=== PATIENT | male | born 1950 | race Caucasian/White ===

== ENCOUNTER → 2018-02-11 17:13 | Outpatient (CLI) | payer MEDICARE, OTHER, SELFPAY ==
--- NOTE | 2018-02-11 17:16 | DI.MRI.S_ITS ---
PROCEDURE: MR SHOULDER RT WO CON INDICATIONS: RIGHT SHOULDER BURSITIS/TENDONITIS TECHNIQUE: Noncontrast oblique coronal T2 fast spin echo with fat saturation, oblique sagittal T1 spin echo and T2 fast spin echo with fat saturation, axial T1 spin echo and T2 fast spin echo with fat saturation through the shoulder. COMPARISON: [facility], CR, XR SHOULDER 2+ VIEWS RIGHT, 12/19/2017, 13:47. FINDINGS: Image quality: Diagnostic Rotator cuff: There is at least moderate grade in partial-thickness tear identified involving the distal supraspinatus tendon that is positioned along the bursal surface. A small perforating full-thickness tear at this location is difficult to exclude. There is moderate supraspinatus tendinopathy. Mild subscapularis and infraspinatus tendinopathy is present. The teres minor tendon is intact. There is no significant atrophy of the rotator cuff muscles. Bones and bursae: There is no acute fracture, dislocation, or suspicious osseous lesion involving the osseous structures of the right shoulder. There is posterior subluxation of the humeral head. Mild degenerative changes of the glenohumeral joint are present. There is a small glenohumeral joint effusion. There are moderate degenerative changes present involving the acromial clavicular joint with moderate-sized undersurface osteophytes. There is thickening of the subacromial subdeltoid bursa. A small amount of fluid is contained within the bursa. Capsule and soft tissues: Evaluation of the labrum and the glenohumeral ligaments is difficult without intra-articular contrast. However, there is a moderate-sized a superior labral tear identified that extends from the 9 o'clock position (anterior) through the 12 o'clock position (superior) into at least the 3 o'clock position (posterior). No large para labral cysts are evident. Additional tearing along the anteroinferior labrum may be present. The long head of the biceps tendon is normally positioned within the bicipital groove and is otherwise intact and grossly unremarkable. Edema/fluid extending beyond the inferior joint capsule may be related to a perforating tear of the inferior glenohumeral ligament. IMPRESSION: 1. At least moderate grade partial-thickness tearing of the distal supraspinatus tendon with corresponding tendinopathy. A small perforating irregular full-thickness tear is difficult to exclude. 2. Mild subscapularis and infraspinatus tendinopathy. 3. Mild to moderate degenerative changes of the right shoulder joints, as described. 4. Moderate-sized superior labral tear. 5. Probable partial-thickness tear of the inferior glenohumeral ligament. 6. Small glenohumeral joint effusion. Dictated by: Alejo Mckinley M.D. on 02/12/2018 at 8:57 Approved by: Alejo Mckinley M.D. on 02/12/2018 at 9:12
== END ==
PROVIDERS: Visit Provider Orthopaedic Surgery
DX: M75.51 Bursitis of right shoulder (principal); M75.101 Unspecified rotator cuff tear or rupture of right shoulder, not specified as traumatic; S43.491A Other sprain of right shoulder joint, initial encounter; M19.011 Primary osteoarthritis, right shoulder; M25.411 Effusion, right shoulder
CPT/HCPCS: 73221